=== PATIENT | male | born 1975 | race Caucasian/White ===

== ENCOUNTER 2016-11-01 09:22 | Day surgery (SDC) | payer OTHER ==
[~2016-11-01] VITALS: Ht 170.2 cm; Wt 92.4 kg
[~2016-11-01 09:22] MED LIST: OMEP20CA9 PO; PANT40TA3; RANI25VI IJ
[2016-11-01 09:53] VITALS: Ht 170.2 cm; Wt 92.4 kg
[2016-11-01] MEDS ORDERED: PROPOFOL 20 ML ONE ×3 (10:16→12:56)
[2016-11-01] MEDS ORDERED: LIDOCAINE 2% (SDV) 5 ML INJ ONE (10:16)
[2016-11-01 10:28] VITALS: BP 124/75; PULSE 80; RESP 24
[2016-11-01 11:25] VITALS: BP 102/65; PULSE 72; RESP 18
--- NOTE | 2016-11-01 12:16 | GILP ---
DATE OF PROCEDURE: NAME OF PROCEDURES: 1. Esophagogastroduodenoscopy and biopsy. 2. Colonoscopy. SURGEON: Bartolo Dutton MD PREOPERATIVE DIAGNOSES: 1. Abdominal pain. 2. Change in bowel habit. POSTOPERATIVE DIAGNOSES: 1. Reflux esophagitis. 2. Gastritis with erosions. 3. Gastric mucosal biopsies were taken for Helicobacter pylori test. 4. Colonoscopy all the way to the cecum. 5. Internal hemorrhoids. 6. No colon neoplasm was identified. INDICATION FOR THE PROCEDURE: Mr. Sarah Dubon is a 41-year-old male patient who had upper abdomi nal pain, not responding to therapy. Patient also noticed a change in the bowel habit, so the patie nt was scheduled for endoscopy and colonoscopy for further evaluation. The procedures and possible complications are well explained to the patient, he understood and conse nted to the procedure. DESCRIPTION OF PROCEDURE: Under the influence of anesthesia, the gastroscope was carefully introduc ed into the esophagus, and under direct vision it was advanced to the stomach and through the pyloru s into the duodenal bulb and descending duodenum. FINDINGS: ESOPHAGUS: The patient had reflux esophagitis. STOMACH: The patient had gastritis with erosions. Gastric mucosal biopsies were taken for H. pylor i test. DUODENUM: Normal. The colonoscope was carefully introduced in the rectum and under direct vision it was advanced all t he way to the cecum. FINDINGS: The patient had internal hemorrhoids. No colon neoplasm was identified. He tolerated the procedures very well and there was no complication from the procedures. At the end of the procedure he was awake with stable vital signs, and he was discharged home to the care of hi s family. IMPRESSION: Please see postoperative diagnosis. PLAN: 1. Continue omeprazole. 2. Add Zantac 300 mg p.o. at bedtime. 3. Await H. pylori test report. Dictated By: BARTOLO DUKES/JOESPH Conf#: [id number] DID#: [id number]
== END 2016-11-01 15:17 | disposition home or self-care (01) ==
LOC: GIL 09:22
PROVIDERS: ATTEND Internal Medicine Gastroenterology
DX: R19.4 Change in bowel habit (principal); K21.0 Gastro-esophageal reflux disease with esophagitis; K29.60 Other gastritis without bleeding; K64.8 Other hemorrhoids; E78.5 Hyperlipidemia, unspecified; E66.9 Obesity, unspecified; Z68.31 Body mass index [BMI] 31.0-31.9, adult
CPT/HCPCS: 43239; 45378; 87081; Z7610